=== PATIENT | male | born 1965 | race American Indian/Alaskan Native ===

== ENCOUNTER 2020-09-27 04:21 | Emergency (ER) | payer BC ==
[2020-09-27] MEDS ORDERED: PHENYLEPHRINE 1 MG, SODIUM CHLORIDE P/F VIAL 10 ML 9.9 ML IJ**NOT IV ONE (04:58)
[2020-09-27] MEDS ORDERED: LIDOCAINE (1%) 10 MG/1 ML VIAL 20 ML MDV INFILTRATI ONE (05:02)
--- NOTE | 2020-09-27 05:02 | Emergency Department Report ---
ED Male HPI - General Chief complaint: Urogenital-Male Stated complaint: SICK Time Seen by Provider: 09/27/20 04:55 Source: patient Mode of arrival: Ambulatory Limitations: No Limitations - History of Present Illness Initial comments: Patient is a 55-year-old male who presents emergency room with complaints of an erection x6 hours. Patient states he is having severe pain in his penis. He states pain is 10 of 10. Patient states the pain is worse with movement and palpation of the penis. Patient states the pain is better with rest. Patient states his urologist prescribed him a 3 medication injection and he injected into the side of his penis and has had an erection ever since. Patient states the second time he uses medication. Patient dates the first on his medication he had a priaprism. Patient states the medications are for erectile dysfunction. Patient denies chest pain. Patient denies shortness of breath. Patient denies any other physical complaints. Patient states the pain is a 10 out of 10. The medication injected is papaverine, phentolamine, alprostadil. Patient denies recent travel. Patient denies recent international travel. Patient denies exposure to the novel coronavirus. Patient denies sick contacts. Patient denies fever and chills. Patient denies cough. Patient denies diarrhea. Patient denies coming in contact with anybody with symptoms of the novel coronavirus. Complaint: other (Priapism) -: Sudden Location: penis Severity: severe Severity scale (0 -10): 10 Quality: sharp Consistency: constant Improves with: rest Worsens with: palpation, movement denies: discharge, mass, rash, urinary retention, blood in urine, dysuria, fever, nausea/vomiting, incontinence - Related Data Sexually active: Yes Previous Rx's Medication Instructions Recorded Last Taken Type Clindamycin [Clindamycin CAP] 600 mg PO DAILY #10 capsule 08/25/18 Unknown Rx Ibuprofen [Motrin] 600 mg PO Q8H #30 tablet 08/25/18 Unknown Rx Allergies Allergy/AdvReac Type Severity Reaction Status Date / Time No Known Allergies Allergy Unverified 08/25/18 09:43 ED Review of Systems ROS: Stated complaint: SICK Other details as noted in HPI Constitutional: denies: chills, fever Eyes: denies: eye pain, eye discharge, vision change ENT: denies: ear pain, throat pain Respiratory: denies: cough, shortness of breath, wheezing Cardiovascular: denies: chest pain, palpitations Endocrine: no symptoms reported Gastrointestinal: denies: abdominal pain, nausea, diarrhea Genitourinary: as per HPI. denies: urgency, dysuria Musculoskeletal: denies: back pain, joint swelling, arthralgia Skin: denies: rash, lesions Neurological: denies: headache, weakness, paresthesias Psychiatric: denies: anxiety, depression Hematological/Lymphatic: denies: easy bleeding, easy bruising ED Past Medical Hx - Past Medical History Previous Medical History?: Yes Hx Hypertension: Yes Additional medical history: Erectile dsyfunction. Sciatica - Surgical History Past Surgical History?: No - Family History Family history: no significant - Social History Smoking Status: Never Smoker Substance Use Type: None - Medications Home Medications: Home Medications Medication Instructions Recorded Confirmed Last Taken Type Clindamycin [Clindamycin CAP] 600 mg PO DAILY #10 capsule 08/25/18 Unknown Rx Ibuprofen [Motrin] 600 mg PO Q8H #30 tablet 08/25/18 Unknown Rx ED Physical Exam - General Limitations: No Limitations General appearance: alert, in no apparent distress - Head Head exam: Present: atraumatic, normocephalic - Eye Eye exam: Present: normal appearance - ENT ENT exam: Present: mucous membranes moist - Neck Neck exam: Present: normal inspection - Respiratory Respiratory exam: Present: normal lung sounds bilaterally. Absent: respiratory distress - Cardiovascular Cardiovascular Exam: Present: regular rate, normal rhythm. Absent: systolic murmur, diastolic murmur, rubs, gallop - GI/Abdominal GI/Abdominal exam: Present: soft, normal bowel sounds - Rectal Rectal exam: Present: deferred - exam: Present: other (Priapism noted. Penis is tender to palpation.) - Extremities Exam Extremities exam: Present: normal inspection - Back Exam Back exam: Present: normal inspection - Neurological Exam Neurological exam: Present: alert, oriented X3 - Psychiatric Psychiatric exam: Present: normal affect, normal mood - Skin Skin exam: Present: warm, dry, intact, normal color. Absent: rash ED Course Vital Signs 09/27/20 04:30 Temperature 98.0 F Pulse Rate 86 Respiratory 20 Rate Blood Pressure 167/98 O2 Sat by Pulse 93 Oximetry - Reevaluation(s) Reevaluation #1: Patient had terbutaline IV and no reaction. Patient continued to have discomfort. Priapism was persistent. 09/27/20 05:15 Reevaluation #2: Patient had a penile block placed and the preparation was drained and phenylephrine was injected. Patient had a 70 % reduction and pain was relieved. Patient tolerated procedure well. No complications noted. See procedure note. 09/27/20 05:30 Reevaluation #3: Patient states he does not have an erection. Patient states he is feeling much better. I discussed all results and clinical findings with patient. I discussed plan of care with patient. Patient agrees with plan of care. Patient is stable for d ischarge. Patient will be discharged home. Patient given discharge instructions. Patient voiced understanding of discharge instructions. 09/27/20 06:08 - Penile Procedure Consent Obtained: verbal consent, emergent situation Time Out Performed: Yes Indication: priapism management Sedation/Analgesia: opioids Local Anesthesia Used: Lidocaine 1% without EPI Amount of Anesthesia Used (mls): 6 Priapism Management: aspiration, phenylephrine injection Complications: none Patient Tolerated Procedure: well, no complications ED Medical Decision Making - Lab Data Result diagrams: 09/27/20 05:15 09/27/20 05:15 - Medical Decision Making Patient is a 55-year-old male who presents emergency room with complaints of penile pain and bladder pressure. Patient was using a medication his urologist gave him an injection into the side of his penis and he developed a preference. The first time the patient uses medication he had the same reaction. Patient had labs done which were essentially unremarkable. Patient given terbutaline and the priapism persisted. Patient was given Dilaudid for pain. Patient then had a penile drainage for appropriate management. Patient also had phenylephrine injected into the side of his penis. Patient had a 70% reduction in his erection and the patient was pain-free. Patient also had a penile block prior to the procedure. Patient stable for discharge. Patient instructed not to use any of his medications. Patient instructed to follow-up with his urologist soon as possible. Patient discharged home. - Differential Diagnosis PRIAPRISM, penile pain Critical care attestation.: If time is entered above; I have spent that time in minutes in the direct care of this critically ill patient, excluding procedure time. ED Disposition Clinical Impression: Priapism Disposition: DC-01 TO HOME OR SELFCARE Is pt being admited?: No Does the pt Need Aspirin: No Condition: Stable Instructions: Priapism Additional Instructions: Patient to follow-up with primary care in 2 to 3 days. Patient to follow-up with urologist in 2 to 3 days. Patient to rest. Patient to increase water. Patient to avoid strenuous exercise or heavy lifting until cleared by primary care and urologist. Patient to avoid erectile medications. No sexual activity until cleared by urologist. Patient to take Tylenol or ibuprofen as needed for pain.. Patient to return to the ER if condition worsens, changes or new symptoms arise. Referrals: PRIMARY CARE, [Primary Care Provider] - 2-3 Days Time of Disposition: 06:08
[2020-09-27] MEDS ORDERED: HYDROmorphone 1 MG/1 ML INJ IV ONE (05:21)
[2020-09-27] MEDS ORDERED: TERBUTALINE 1 MG/1 ML INJ IVP ONE ×2 (05:21→06:00)
[2020-09-27] MEDS ORDERED: PHENYLEPHRINE IV SCH (05:45)
[2020-09-27] MEDS ORDERED: SODIUM CHLORIDE 0.9% IV SCH (05:45)
[2020-09-27 05:52] LABS: Hematocrit 39.3 % (35.5-45.6); Hemoglobin 13.6 gm/dl (11.8-15.2); Mean Corpuscular HGB Conc 35 % (32-34); Mean Corpuscular Volume 87 fl (84-94); Platelet Count 239 K/mm3 (140-440); Red Blood Count 4.53 M/mm3 (3.65-5.03)
[2020-09-27 06:02] LABS: Alanine Aminotransferase 11 units/L (7-56); Albumin 4.2 g/dL (3.9-5); Blood Urea Nitrogen 11 mg/dL (9-20); Calcium 8.3 mg/dL (8.4-10.2); Hemolysis Index 7
[2020-09-27 06:07] LABS: BUN/Creatinine Ratio 16
[2020-09-27 06:22] VITALS: BP 142/89
== END 2020-09-27 06:31 | disposition home or self-care (01) ==
LOC: ED 04:21
DX: N48.30 Priapism, unspecified (principal); I10 Essential (primary) hypertension; Z79.1 Long term (current) use of non-steroidal anti-inflammatories (NSAID); Z79.2 Long term (current) use of antibiotics
CPT/HCPCS: 36415; 54220; 80053; 85027; 96365; 96375; 99283; J1170; J2370; J3105

== ENCOUNTER 2020-12-14 08:10 | Emergency (ER) | payer BC ==
[2020-12-14] MEDS ORDERED: PHENYLEPHRINE/NS 1,000 MCG/10 ML SYRINGE (OR USE) IV ONE (08:39)
[2020-12-14] MEDS ORDERED: LIDOCAINE (1%) 10 MG/1 ML VIAL 20 ML MDV INFILTRATI ONE (08:44)
[2020-12-14] MEDS ORDERED: LIDOCAINE (1%) 10 MG/1 ML VIAL 20 ML MDV ONE (08:44)
[2020-12-14] MEDS ORDERED: BUPIVACAINE/PF (0.25%) 2.5 MG/ML 30 ML VIAL INFILTRATI ONE (08:44)
[2020-12-14] MEDS ORDERED: BUPIVACAINE/PF (0.25%) 2.5 MG/ML 10 ML VIAL INFILTRATI ONE (08:44)
[2020-12-14] MEDS ORDERED: ONDANSETRON 4 MG/2 ML INJ IV ONE (08:45)
[2020-12-14] MEDS ORDERED: HYDROmorphone 1 MG/1 ML INJ ONE (08:45)
[2020-12-14] MEDS ORDERED: HYDROmorphone 1 MG/1 ML INJ IV ONE (08:45)
[2020-12-14] MEDS ORDERED: ONDANSETRON 4 MG/2 ML INJ ONE (08:45)
--- NOTE | 2020-12-14 08:49 | Emergency Department Report ---
HPI - General Chief Complaint: Urogenital-Male Time Seen by Provider: 12/14/20 08:37 - HPI HPI: Room 25 The patient is a 55-year-old male present with a chief complaint of priapism. The patient states last night at 22: 00 he injected his penis with SP 6 which was prescribed to him for erectile dysfunction. Patient states he has had an erection for approximately 7 hours. Patient complains of penile pain and gives a score of 10/10. The patient currently does not remember the name of his urologist but states he will contact his for the information ED Past Medical Hx - Past Medical History Previous Medical History?: Yes Hx Hypertension: Yes Additional medical history: Erectile dsyfunction. Sciatica - Surgical History Past Surgical History?: No - Family History Family history: no significant - Social History Smoking Status: Current Every Day Smoker (1/2 pack/day) Substance Use Type: None (Denies illicit drug use), Alcohol (Occasional) - Medications Home Medications: Home Medications Medication Instructions Recorded Confirmed Last Taken Type Clindamycin [Clindamycin CAP] 600 mg PO DAILY #10 capsule 08/25/18 Unknown Rx Ibuprofen [Motrin] 600 mg PO Q8H #30 tablet 08/25/18 Unknown Rx HYDROcodone/APAP 5-325 [[place]um[place] 1 - 2 each PO Q6HR PRN #14 tablet 12/14/20 Unknown Rx 5/325] ED Review of Systems ROS: Stated complaint: PRIAPISM Other details as noted in HPI Constitutional: no symptoms reported Eyes: denies: eye pain ENT: denies: throat pain Respiratory: no symptoms reported Cardiovascular: denies: chest pain Endocrine: no symptoms reported Gastrointestinal: denies: abdominal pain Genitourinary: other (Priapism) Musculoskeletal: denies: back pain Neurological: denies: headache Physical Exam - Physical Exam Vital Signs: Vital Signs 12/14/20 08:25 Temperature 98.3 F Pulse Rate 95 H Blood Pressure 157/100 O2 Sat by Pulse 20 L Oximetry Physical Exam: GENERAL: The patient is well-developed well-nourished male lying on stretcher appearing to be in moderate discomfort. [] HEENT: Normocephalic. Atraumatic. Extraocular motions are intact. Patient has moist mucous membranes. NECK: Supple. Trachea midline CHEST/LUNGS: There is no respiratory distress noted. ABDOMEN: There is no abdominal distention. SKIN: There is no rash. There is no edema. There is no diaphoresis. NEURO: The patient is awake, alert, and oriented. The patient is cooperative. The patient has normal speech MUSCULOSKELETAL: There is no evidence of acute injury. ED Course Vital Signs 12/14/20 08:25 Temperature 98.3 F Pulse Rate 95 H Blood Pressure 157/100 O2 Sat by Pulse 20 L Oximetry - Reevaluation(s) Reevaluation #1: 12/14/20 09:50 Penile detumescence achieved after aspiration of approximately 130 mL of blood and injection of approximately 400 mcg phenylephrine. Patient states he feels much improved ED Medical Decision Making - Differential Diagnosis Priapism Critical care attestation.: If time is entered above; I have spent that time in minutes in the direct care of this critically ill patient, excluding procedure time. ED Disposition Clinical Impression: Priapism Disposition: DC-01 TO HOME OR SELFCARE Is pt being admited?: No Does the pt Need Aspirin: No Condition: Stable Additional Instructions: Return to the emergency department should you develop worsening symptoms, inability to tolerate food or liquids, high fever or any other concerns Prescriptions: HYDROcodone/APAP 5-325 [Cumming 5/325] 1 - 2 each PO Q6HR PRN #14 tablet PRN Reason: Pain Referrals: PRIMARY CARE,MD [Primary Care Provider] - 3-5 Days Your, urologist [Other] - 3-5 Days Time of Disposition: 09:52
[2020-12-14] MEDS ORDERED: PHENYLEPHRINE IJ**NOT IV ONE (09:15)
[2020-12-14] MEDS ORDERED: SODIUM CHLORIDE 0.9% IJ**NOT IV ONE (09:15)
[2020-12-14 11:13] VITALS: BP 142/92
== END 2020-12-14 11:11 | disposition home or self-care (01) ==
LOC: ED 08:10
DX: N48.30 Priapism, unspecified (principal); I10 Essential (primary) hypertension; F17.200 Nicotine dependence, unspecified, uncomplicated; F12.10 Cannabis abuse, uncomplicated; Z79.899 Other long term (current) drug therapy
CPT/HCPCS: 54220; 96374; 96375; 99282; J1170; J2370; J2405

== ENCOUNTER 2021-05-30 04:52 | Emergency (ER) | payer BC ==
[2021-05-30] MEDS ORDERED: MORPHINE 2 MG/1 ML INJ IV ONE (07:53)
[2021-05-30] MEDS ORDERED: LIDOCAINE (1%) 10 MG/1 ML VIAL 20 ML MDV INFILTRATI ONE (08:25)
[2021-05-30] MEDS ORDERED: PHENYLEPHRINE 1 MG, SODIUM CHLORIDE P/F VIAL 10 ML 9.9 ML IJ**NOT IV SCH (09:00)
--- NOTE | 2021-05-30 10:37 | Emergency Department Report ---
ED Male HPI - General Chief complaint: Urogenital-Male Stated complaint: ERECTION +4HRS Time Seen by Provider: 05/30/21 07:46 Source: patient Mode of arrival: Ambulatory Limitations: No Limitations - History of Present Illness Initial comments: 56-year-old male presents to ED with priapism x6 hours prior to ED arrival. Patient states he uses a medication that he injects directly into his penis for erectile dysfunction. Patient states he injected almost double the amount that he should have. Patient states this is because he did not have his glasses on. Patient states he also has phenylephrine that comes in the kit in case this happens, but states he ran out of the phenylephrine. Patient was here previously for the same. He states he does not remember the name of his urologist. Blood pressure is elevated. Patient states he takes medication for hypertension, but did not take it this morning. Complaint: other -: hour(s) (6) Location: penis Severity: severe Quality: aching Consistency: constant Improves with: none Worsens with: none denies other symptoms - Related Data Previous Rx's Medication Instructions Recorded Last Taken Type Clindamycin [Clindamycin CAP] 600 mg PO DAILY #10 capsule 08/25/18 Unknown Rx Ibuprofen [Motrin] 600 mg PO Q8H #30 tablet 08/25/18 Unknown Rx HYDROcodone/APAP 5-325 [[place] 1 - 2 each PO Q6HR PRN #14 tablet 12/14/20 Unknown Rx 5/325] Allergies Allergy/AdvReac Type Severity Reaction Status Date / Time No Known Allergies Allergy Unverified 08/25/18 09:43 ED Review of Systems ROS: Stated complaint: ERECTION +4HRS Other details as noted in HPI Comment: All other systems reviewed and negative Genitourinary: as per HPI ED Past Medical Hx - Past Medical History Previous Medical History?: Yes Hx Hypertension: Yes Additional medical history: Erectile dsyfunction. Sciatica - Surgical History Past Surgical History?: No - Social History Smoking Status: Never Smoker Substance Use Type: Alcohol, Prescribed - Medications Home Medications: Home Medications Medication Instructions Recorded Confirmed Last Taken Type Clindamycin [Clindamycin CAP] 600 mg PO DAILY #10 capsule 08/25/18 Unknown Rx Ibuprofen [Motrin] 600 mg PO Q8H #30 tablet 08/25/18 Unknown Rx HYDROcodone/APAP 5-325 [[place] 1 - 2 each PO Q6HR PRN #14 tablet 12/14/20 Unk nown Rx 5/325] ED Physical Exam - General Limitations: No Limitations General appearance: alert, in no apparent distress - Head Head exam: Present: atraumatic, normocephalic - Eye Eye exam: Present: normal appearance, EOMI - ENT ENT exam: Present: mucous membranes moist - Neck Neck exam: Present: normal inspection - Respiratory Respiratory exam: Present: normal lung sounds bilaterally. Absent: respiratory distress - Cardiovascular Cardiovascular Exam: Present: regular rate, normal rhythm - GI/Abdominal GI/Abdominal exam: Present: soft. 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) - Extremities Exam Extremities exam: Present: normal inspection - Neurological Exam Neurological exam: Present: alert, oriented X3 - Psychiatric Psychiatric exam: Present: normal affect, normal mood - Skin Skin exam: Present: warm, dry, intact, normal color ED Course Vital Signs 05/30/21 05/30/21 05/30/21 06:26 07:41 08:50 Temperature 97.8 F 98.9 F Pulse Rate 79 88 Respiratory 18 20 20 Rate Blood Pressure 198/129 154/80 Blood Pressure [Right] O2 Sat by Pulse 99 98 Oximetry 05/30/21 05/30/21 05/30/21 09:55 10:01 10:15 Temperature Pulse Rate 71 66 Respiratory 9 L 19 10 L Rate Blood Pressure 192/115 202/109 Blood Pressure [Right] O2 Sat by Pulse 100 100 99 Oximetry 05/30/21 05/30/21 05/30/21 10:31 10:45 11:00 Temperature 98.2 F Pulse Rate 72 63 64 Respiratory 16 13 20 Rate Blood Pressure 192/115 209/112 Blood Pressure 190/117 [Right] O2 Sat by Pulse 100 100 99 Oximetry - Reevaluation(s) Reevaluation #1: 05/30/21 10:35 Aspiration performed. Patient received 1 mL phenylephrine injection. No additional doses due to patient's hypertension. Erection appears to be approximately 90% resolved to me. Patient, however, reports full detumescence at this time. States he is feeling much better. Patient states he does not want to stay any longer for further aspiration or injection. He is also refusing any medication for BP management at this time. Patient states he is ready to be discharged. Patient advised of risk of leaving AMA, including stroke, , reproductive organ damage. Patient states he fully understands. He is A&O x3 and has full decisional capacity. AMA form signed by patient. - Penile Procedure Consent Obtained: verbal consent Time Out Performed: Yes Indication: priapism management Procedural Sedation: No Local Anesthesia Used: Penile Nerve Block Amount of Anesthesia Used (mls): 5 Priapism Management: aspiration, phenylephrine injection Complications: persistent priapism Patient Tolerated Procedure: well ED Medical Decision Making - Medical Decision Making 56-year-old male presents to ED with priapism secondary to penile injection of erectile dysfunction medication. There was a delay in care in performing procedure on patient due to being single covered in the ED and having to run a CODE BLUE and provide postresuscitation care. Ultimately I was able to perform aspiration and injection of phenylephrine. Patient reported that he is feeling much better, that his priapism has fully resolved. Patient refused any further treatment, including blood pressure management. Patient was given an AMA form to sign. He was informed of risks of leaving AMA. Patient advised to follow-up with urologist. Return precautions given. - Differential Diagnosis Priapism Critical care attestation.: If time is entered above; I have spent that time in minutes in the direct care of this critically ill patient, excluding procedure time. ED Disposition Clinical Impression: Priapism, Uncontrolled hypertension Disposition: 07 LEFT AGAINST MEDICAL ADVICE Is pt being admited?: No Condition: Stable Instructions: Priapism, Hypertension (ED) Referrals: PRIMARY CARE, [Primary Care Provider] - 3-5 Days JOSE GUAN MD [Staff Physician] - 3-5 Days Time of Disposition: 10:36
[2021-05-30 11:31] VITALS: BP 190/117
== END 2021-05-30 11:31 | disposition left against medical advice (07) ==
LOC: ED 04:52
DX: N48.30 Priapism, unspecified (principal); I10 Essential (primary) hypertension; Z79.899 Other long term (current) drug therapy
CPT/HCPCS: 54220; 96374; 99283; J2270; J2370